=== PATIENT | female | born 1975 | race Caucasian/White ===

== ENCOUNTER → 2016-10-19 | Outpatient (CLI) | payer OTHER ==
--- NOTE | 2016-10-19 22:57 | MR ---
EXAMINATION TYPE: MR lumbar spine wo con DATE OF EXAM: 10/19/2016 COMPARISON: NONE HISTORY: 41-year-old female with lower back & left hip pain x 4 months after fall on ice TECHNIQUE: Multiplanar, multisequence images of the lumbar spine were acquired. FINDINGS: Vertebral body heights are preserved and alignment is maintained. 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 Mild to moderate facet degenerative change within the lower lumbar spine. Conus medullaris is normal. No suspicious bone marrow replacement. There is degenerative disc disease at L4-L5 and L5-S1 with mild to moderate disc desiccation and mild diffuse bulging discs. There is a right paracentral posterior annular fissure at L5-S1 and a left in traforaminal annular fissure at L4-L5. From T12 through L3 levels, no significant spinal canal or neuroforaminal stenosis. At L4-L5, there is mild diffuse bulging disc with facet degenerative change and a component of mild c ongenital canal narrowing. There is mild inferior narrowing of the left neuroforamen without signific ant spinal canal stenosis. At L5-S1, there is bulging disc with facet degenerative change and right paracentral annular fissure. Changes minimally narrow the bilateral neuroforamina. No significant spinal canal stenosis. No prevertebral or paravertebral soft tissue abnormality. IMPRESSION: 1. Mild to moderate disc desiccation and mild bulging discs at L4-L5 and L5-S1. Additional left intra foraminal annular fissure at L4-L5 and right paracentral annular fissure at L5-S1. 2. No large focal disc herniation. While there is a component of mild congenital canal narrowing of t he mid to lower lumbar spine, there is no significant spinal canal stenosis. 3. Additional facet arthropathy lower lumbar spine with changes contributing to minimal to mild narro wing of the bilateral L5-S1 neuroforamina and the left L4-L5 neuroforamen.
== END | disposition home or self-care (01) ==
LOC: RADMRIMAIN 16:55
PROVIDERS: ATTEND Physical Medicine & Rehabilitation
DX: M99.73 Connective tissue and disc stenosis of intervertebral foramina of lumbar region (principal); M51.17 Intervertebral disc disorders with radiculopathy, lumbosacral region; M51.37 Other intervertebral disc degeneration, lumbosacral region; M46.87 Other specified inflammatory spondylopathies, lumbosacral region
CPT/HCPCS: 72148